=== PATIENT | male | born 1940 | race Caucasian/White ===

== ENCOUNTER 2023-04-15 10:53 | Emergency (ER) | payer OTHER ==
[~2023-04-15 10:53] MED LIST: Iopamidol 370 76% 100 ML VIAL ONE
== END 2023-04-15 13:50 | disposition home or self-care (01) ==
LOC: NAV ERS 10:53
DX: C15.9 Malignant neoplasm of esophagus, unspecified (principal); C79.51 Secondary malignant neoplasm of bone; Z87.891 Personal history of nicotine dependence
CPT/HCPCS: 72193; Q9967